=== PATIENT | male | born 1960 | race Hispanic/Latino ===

== ENCOUNTER → 2018-10-28 | Outpatient (CLI) | payer MEDICARE ==
--- NOTE | 2018-10-28 10:55 | Diagnostic Imaging Report ---
EXAMINATION: PA and lateral views of the chest. COMPARISON: None CLINICAL HISTORY: Smoker, chronic cough DISCUSSION: Lines/tubes: None. Lungs: The lungs are well inflated and clear. There is no evidence of pneumonia or pulmonary edema. Pleura: There is no pleural effusion or pneumothorax. Heart and mediastinum: Atherosclerotic calcification of the thoracic aorta. Otherwise, The cardiomediastinal silhouette is normal. Bones and soft tissues: No acute bony abnormalities. Degenerative changes in the thoracic spine IMPRESSION: No acute cardiopulmonary abnormalities. Signed by: Dr. Mahamed Subramanian M.D. on 10/28/2018 10:52 AM
== END ==
LOC: RAD 10:23
PROVIDERS: ATTEND Family Medicine
DX: R05 Cough (principal); R18.8 Other ascites; F17.210 Nicotine dependence, cigarettes, uncomplicated
CPT/HCPCS: 71046

== ENCOUNTER → 2018-11-04 | Outpatient (CLI) | payer OTHER ==
[~2018-11-04] MED LIST: IOPAMIDOL 370 MG/ML 200 ML INFUS..BTL INJ ONE; SODIUM CHLORIDE 0.9% 50ML 50 ML ONE
--- NOTE | 2018-11-04 12:30 | Diagnostic Imaging Report ---
EXAM: CT ABDOMEN AND PELVIS with IV CONTRAST DATE: 11/04/2018 Time stamp on Exam: 9:54 AM INDICATION: Abdominal pain, ascites and ventral hernia COMPARISON: None TECHNIQUE: The abdomen and pelvis were scanned using a multidetector helical scanner. Coronal and sagittal reformations were obtained. Routine protocol performed. Dose reduction techniques were utilized. IV Contrast: 100 cc of Isovue-300 Oral Contrast: Water Radiation Dose: Total DLP 705.69 mGy*cm Estimated effective dose: DLP x 0.015 x size factor FINDINGS: LOWER THORAX: No consolidations LIVER: The liver is small with a maximal dimension of 17.3 cm. Contour is slightly nodular. No masses are identified. BILIARY: The gallbladder is unremarkable. No ductal dilatation. SPLEEN: No masses PANCREAS: No masses ADRENALS: No nodules KIDNEYS: Symmetric perfusion. No enhancing masses. No hydronephrosis. GI TRACT: No distention, wall thickening or evidence of obstruction. VESSELS: Vascular calcification. PERITONEUM/RETROPERITONEUM: There is a large amount of abdominal and pelvic ascites. No hernia is identified. LYMPH NODES: No lymphadenopathy REPRODUCTIVE ORGANS: Unremarkable BLADDER: Unremarkable SOFT TISSUES: Unremarkable BONES: No suspicious bone lesions. Rods present within L5 and S1. IMPRESSION: 1. Small slightly nodular liver without focal mass. 2. Large amount of abdominal and pelvic ascites. Signed by: Dr. Jaime Lepe DO on 11/04/2018 12:27 PM
== END ==
LOC: CT 08:18
PROVIDERS: ATTEND Family Medicine
DX: R10.9 Unspecified abdominal pain (principal); R18.8 Other ascites; K43.9 Ventral hernia without obstruction or gangrene; K76.9 Liver disease, unspecified
CPT/HCPCS: 74177; Q9967

== ENCOUNTER → 2019-01-03 | Outpatient (CLI) | payer MEDICARE ==
[2019-01-03 07:55] LABS: INR 1.28; PARTIAL THROMBOPLASTIN TIME 38.2 seconds (23.8-35.5); PROTHROMBIN TIME 16.6 seconds (11.9-14.5)
--- NOTE | 2019-01-03 10:15 | Diagnostic Imaging Report ---
PROCEDURE: Ultrasound-guided therapeutic paracentesis Procedural Personnel Attending physician(s): Joel Lamb MD Pre-procedure diagnosis: Ascites Post-procedure diagnosis: Same Indication: Ascites with pain or pressure symptoms Additional clinical history: None Complications: No immediate complications. IMPRESSION: Ultrasound-guided paracentesis with drainage of 2400 mL of serous fluid. Plan: Resume care by clinical team. PROCEDURE SUMMARY: - Limited abdominal ultrasound - Ultrasound-guided paracentesis - Additional procedure(s): None PROCEDURE DETAILS: Pre-procedure Consent: Informed consent for the procedure including risks, benefits and alternatives was obtained and time-out was performed prior to the procedure. Preparation: The site was prepared and draped using maximal sterile barrier technique including cutaneous antisepsis. Anesthesia/sedation Level of anesthesia/sedation: No sedation Initial abdominal ultrasound Initial abdominal ultrasound was performed. Findings: Moderate ascites. A safe window for paracentesis was identified. Paracentesis Local anesthesia was administered. The peritoneal cavity was accessed and fluid return confirmed position. Ascites was drained. The catheter was then removed, and a sterile bandage was applied. Paracentesis access technique: Real-time ultrasound guidance Catheter placed: 5F Yueh Post-drainage ultrasound: Small ascites Additional Details Additional description of procedure: None Equipment details: None Specimens removed: Abdominal fluid Estimated blood loss (mL): Less than 10 Standardized report: [email or web address] Attestation Signer name: Joel Lamb MD I attest that I was present for the entire procedure. I reviewed the stored images and agree with the report as written. Signed by: Joel Lamb MD on 01/03/2019 10:10 AM
== END ==
LOC: US 06:54
PROVIDERS: ATTEND Internal Medicine Gastroenterology
DX: R18.8 Other ascites (principal); K70.30 Alcoholic cirrhosis of liver without ascites; I10 Essential (primary) hypertension; E66.3 Overweight; Z71.3 Dietary counseling and surveillance; Z86.010 Personal history of colon polyps; F17.200 Nicotine dependence, unspecified, uncomplicated
CPT/HCPCS: 36415; 49083; 85049; 85610; 85730

== ENCOUNTER 2022-01-03 04:56 | Inpatient (IN) | payer MEDICARE ==
[~2022-01-03] VITALS: Ht 176.5 cm; Wt 93.4 kg
[2022-01-03 05:30] LABS: BASOPHILS % 0.5 % (0.0-1.0); EOSINOPHILS % 0.5 % (0.0-6.0); HEMATOCRIT 30.5 % (38.2-49.6); HEMOGLOBIN 11.3 g/dL (14.0-18.0); LYMPHOCYTES # (AUTO) 0.7 (1.0-3.2); LYMPHOCYTES % 13.1 % (18.0-39.1); MEAN CORPUSCULAR HEMOGLOBIN 36.3 pg (28-32); MEAN CORPUSCULAR VOLUME 98.1 fL (81-99); MONOCYTES # (AUTO) 0.5 (0.2-0.8); MONOCYTES % 9.3 % (4.4-11.3); NEUTROPHILS # (AUTO) 4.2 (2.1-6.9); NEUTROPHILS % 76.2 % (38.7-80.0); RED BLOOD COUNT 3.11 x10e6/uL (4.3-5.7); RED CELL DISTRIBUTION WIDTH 13.2 % (11.7-14.4)
[2022-01-03 05:34] LABS: PLATELET COUNT 68 x10e3/uL (140-360)
[2022-01-03 05:35] LABS: INR 1.5; PROTHROMBIN TIME 19.4 seconds (11.9-14.5)
[2022-01-03] MEDS ORDERED: SODIUM CHLORIDE 0.9% 500ML 500 ML IV STA (05:36)
[2022-01-03] MEDS ORDERED: KETOROLAC TROMETHAMINE 30 MG/ML VIAL IV STA (05:36)
[2022-01-03 05:45] LABS: ALBUMIN/GLOBULIN RATIO 0.8 (0.8-2.0); ANION GAP 14.2 mmol/L (8-16); CALCIUM 8.1 mg/dL (8.4-10.2); CREATININE, SERUM 0.87 mg/dL (0.72-1.25); POTASSIUM 4.2 mmol/L (3.5-5.1)
[2022-01-03] MEDS ORDERED: ACETAMINOPHEN 325 MG TAB PO ONE (05:45)
[2022-01-03 06:00] LABS: SALICYLATE < 5.0 mg/dL (0-30)
[2022-01-03 07:54] LABS: CLARITY,URINE CLOUDY (CLEAR); COLOR,URINE YELLOW (YELLOW); LEUKOCYTE ESTERASE ,URINE NEGATIVE (NEGATIVE); NITRITE,URINE NEGATIVE (NEGATIVE); PROTEIN,URINE DIPSTICK 1+ (NEGATIVE)
[2022-01-03 07:55] LABS: AMPHETAMINES SCREEN,URINE NEGATIVE (NEGATIVE); BENZODIAZEPINES SCREEN,URINE NEGATIVE (NEGATIVE); KETONES,URINE 1+ (NEGATIVE); PHENCYCLIDINE SCREEN,URINE NEGATIVE (NEGATIVE); URINE UROBILINOGEN 1 mg/dL (0.2 - 1)
[2022-01-03 08:19] LABS: RBC,URINE 0-5 /HPF (0-5)
[2022-01-03 08:20] LABS: BACTERIA,URINE MODERATE /HPF; EPITHELIAL CELLS,URINE MANY /LPF
[2022-01-03] MEDS ORDERED: SODIUM CHLORIDE 0.9% 1000ML 1,000 ML IV SCH (08:30)
[2022-01-03] MEDS: SODIUM CHLORIDE 0.9% 1000ML 1,000 ML IV SCH ×3 (08:42→14:48)
[2022-01-03] MEDS ORDERED: ONDANSETRON HCL INJ 2MG/ML 2ML 2 MG/ML VIAL IV PRN (08:45)
[2022-01-03] MEDS ORDERED: LACTULOSE SYRUP 20 GM/30 ML UDC PO SCH (09:00)
[2022-01-03 11:18] VITALS: BP 142/71
[2022-01-03 11:28] VITALS: BP 142/71
[2022-01-03] MEDS ORDERED: SPIRONOLACTONE25 MG PO (12:01)
[2022-01-03] MEDS ORDERED: BUPROPION HCL100 MG PO (12:01)
[2022-01-03] MEDS ORDERED: LANSOPRAZOLE15 MG PO (12:01)
[2022-01-03] MEDS ORDERED: PROPRANOLOL HCL10 MG PO (12:01)
[2022-01-03] MEDS ORDERED: HEMOCYTE PLUS1 EACH PO (12:01)
[2022-01-03] MEDS ORDERED: LACTULOSE20 GM/30 M PO (12:01)
[2022-01-03] MEDS ORDERED: FUROSEMIDE40 MG PO (12:01)
[2022-01-03] MEDS ORDERED: GUAIFENESIN/DEXTROMETHORPHAN LIQD 5 ML UDC PO PRN (14:00)
[2022-01-03] MEDS ORDERED: HYDRALAZINE HCL 20 MG/ML VIAL IV PRN (14:00)
[2022-01-03] MEDS ORDERED: MAGNESIUM/ALUMINUM/SIMETHICONE 30 ML UDC PO PRN (14:00)
[2022-01-03] MEDS ORDERED: ACETAMINOPHEN 325 MG TAB PO PRN (14:00)
[2022-01-03] MEDS: LACTULOSE SYRUP 20 GM/30 ML UDC PO SCH ×3 (14:47→21:45)
[2022-01-03] MEDS: PROPRANOLOL HCL 10 MG TAB PO SCH (14:48)
[2022-01-03 15:22] VITALS: BP 122/66
[2022-01-03 20:00] VITALS: BP 108/61
[2022-01-03] MEDS ORDERED: MELATONIN 3 MG TAB PO PRN (21:00)
[2022-01-03 21:30] VITALS: BP 108/61
[2022-01-04] VITALS (8 sets, daily range): BP systolic 111–124; BP diastolic 55–64
[2022-01-04] MEDS: SODIUM CHLORIDE 0.9% 1000ML 1,000 ML IV SCH ×2 (01:30→11:49)
[2022-01-04] MEDS: PROPRANOLOL HCL 10 MG TAB PO SCH ×2 (04:00→15:08)
[2022-01-04 05:29] LABS: BASOPHILS % 0.4 % (0.0-1.0); EOSINOPHILS # (AUTO) 0.2 (0.0-0.4); EOSINOPHILS % 3.9 % (0.0-6.0); HEMATOCRIT 27.1 % (38.2-49.6); HEMOGLOBIN 9.9 g/dL (14.0-18.0); LYMPHOCYTES % 22.6 % (18.0-39.1); MEAN CORPUSCULAR HEMOGLOBIN 36.4 pg (28-32); MEAN CORPUSCULAR HGB CONC 36.5 g/dL (31-35); MEAN CORPUSCULAR VOLUME 99.6 fL (81-99); MONOCYTES # (AUTO) 0.5 (0.2-0.8); MONOCYTES % 11.6 % (4.4-11.3); NEUTROPHILS # (AUTO) 2.8 (2.1-6.9); NEUTROPHILS % 61.3 % (38.7-80.0); PLATELET COUNT 56 x10e3/uL (140-360); RED BLOOD COUNT 2.72 x10e6/uL (4.3-5.7); RED CELL DISTRIBUTION WIDTH 13.4 % (11.7-14.4)
[2022-01-04 05:58] LABS: ANION GAP 11.3 mmol/L (8-16); CALCIUM 7.8 mg/dL (8.4-10.2); CREATININE, SERUM 0.81 mg/dL (0.72-1.25); POTASSIUM 4.3 mmol/L (3.5-5.1)
[2022-01-04] MEDS: MULTIVITAMINS/MINERALS TAB PO SCH (08:06)
[2022-01-04] MEDS: BUPROPION HCL 150 MG TABCR PO SCH (08:06)
[2022-01-04] MEDS: PANTOPRAZOLE SOD 40 MG TABEC PO SCH (08:06)
[2022-01-04] MEDS: SPIRONOLACTONE 25 MG TAB PO SCH (08:06)
[2022-01-04] MEDS: LACTULOSE SYRUP 20 GM/30 ML UDC PO SCH ×2 (08:06→15:00)
[2022-01-04] MEDS: FUROSEMIDE 20 MG TAB PO SCH (08:11)
[2022-01-05] VITALS: BP 131/56
[2022-01-05] MEDS: PROPRANOLOL HCL 10 MG TAB PO SCH ×2 (03:00→17:22)
[2022-01-05 04:00] VITALS: BP 121/54
[2022-01-05] MEDS: SODIUM CHLORIDE 0.9% 1000ML 1,000 ML IV SCH (04:30)
[2022-01-05 08:12] VITALS: BP 121/54
[2022-01-05 08:23] VITALS: BP 126/61
[2022-01-05] MEDS: BUPROPION HCL 150 MG TABCR PO SCH (10:21)
[2022-01-05] MEDS: FUROSEMIDE 20 MG TAB PO SCH (10:21)
[2022-01-05] MEDS: MULTIVITAMINS/MINERALS TAB PO SCH (10:21)
[2022-01-05] MEDS: SPIRONOLACTONE 25 MG TAB PO SCH (10:21)
[2022-01-05] MEDS: PANTOPRAZOLE SOD 40 MG TABEC PO SCH (10:21)
[2022-01-05] MEDS: LACTULOSE SYRUP 20 GM/30 ML UDC PO SCH ×2 (10:22→17:22)
[2022-01-05] MEDS ORDERED: AMOX TR-K CLV1 EAC2 PO (10:54)
[2022-01-05 11:26] VITALS: BP 118/64
[2022-01-05 15:17] VITALS: BP 126/60
[2022-01-05] MEDS ORDERED: ONDANSETRON HCL 4 MG ORAL DISINTEGRATING TAB PO PRN (16:15)
== END 2022-01-05 18:20 | disposition home or self-care (01) | DRG 158 ==
LOC: ER 05:00 → ERHOLD 08:33 → MED/SURG2 09:58
PROVIDERS: ADMIT Internal Medicine Critical Care Medicine; ATTEND Internal Medicine Critical Care Medicine
DX: K04.7 Periapical abscess without sinus (principal); E72.20 Disorder of urea cycle metabolism, unspecified; E87.2 Acidosis; K76.6 Portal hypertension; N39.0 Urinary tract infection, site not specified; I85.10 Secondary esophageal varices without bleeding; K02.9 Dental caries, unspecified; R50.9 Fever, unspecified; D63.8 Anemia in other chronic diseases classified elsewhere; G89.29 Other chronic pain; D69.59 Other secondary thrombocytopenia; Z20.822 Contact with and (suspected) exposure to COVID-19; K70.31 Alcoholic cirrhosis of liver with ascites; F17.200 Nicotine dependence, unspecified, uncomplicated; F10.21 Alcohol dependence, in remission; K70.30 Alcoholic cirrhosis of liver without ascites
CPT/HCPCS: 36415; 70450; 71045; 76705; 80048; 80053; 80307; 80320; 80329; 81001; 82140; 83605; 84484; 85025; 85610; 87040; 87086; 93005; 93306; 94799; 99284; J0696; J1885; J7030; J7040